=== PATIENT | female | born 1970 | race Caucasian/White ===

== ENCOUNTER → 2024-01-12 14:06 | Outpatient (REF) | payer BC, SELFPAY | LOC: WDC 14:06 | PROVIDERS: ATTENDING PHYSICIAN Obstetrics & Gynecology Gynecology | DX: Z12.31 Encounter for screening mammogram for malignant neoplasm of breast (principal) | CPT/HCPCS: 77063; 77067 ==

== ENCOUNTER → 2024-03-01 11:23 | Outpatient (REF) | payer BC, SELFPAY | LOC: HWRAD 11:23 | PROVIDERS: ATTENDING PHYSICIAN Obstetrics & Gynecology Gynecology; FAMILY PHYSICIAN Nurse Practitioner Family; REFERRING PHYSICIAN Family Medicine | DX: N83.202 Unspecified ovarian cyst, left side (principal) | CPT/HCPCS: 76830; 76856 ==

== ENCOUNTER → 2024-03-16 11:03 | Outpatient (REF) | payer BC, SELFPAY | LOC: WDC 11:03 | PROVIDERS: ATTENDING PHYSICIAN Obstetrics & Gynecology Gynecology; FAMILY PHYSICIAN Family Medicine | DX: R92.2 Inconclusive mammogram (principal) | CPT/HCPCS: 76641 ==

== ENCOUNTER 2024-04-02 06:14 | Day surgery (SDC) | payer BC, SELFPAY ==
[2024-04-02] VITALS (9 sets, daily range): BP systolic 104–119; BP diastolic 48–70; BMI 23.0
[2024-04-02 07:14] LABS: HCG, Urine Qualitative Screen Negative
[2024-04-02] MEDS: ZOFRAN 4 MG IV (09:38)
== END 2024-04-02 10:35 | disposition home or self-care (01) ==
LOC: SDS 06:14
PROVIDERS: ATTENDING PHYSICIAN Obstetrics & Gynecology Gynecology
DX: N84.0 Polyp of corpus uteri (principal); N93.9 Abnormal uterine and vaginal bleeding, unspecified
CPT/HCPCS: 58558; 88305; 81025; 93005

== ENCOUNTER 2024-04-05 20:30 | Emergency (ER) | payer BC, SELFPAY ==
[2024-04-05 20:36] VITALS: BP 121/55
--- NOTE | 2024-04-05 20:38 | ED.GENMED ---
ED Provider Triage
-
Patient seen by provider in Triage?: Seen in Triage
Attestation: A medical screening examination has been initiated by a qualified medical provider. Based on the assessment performed at this time, it has been determined that an emergent medical condition may exist and the patient has been informed
that further medical evaluation and possible additional diagnostic testing may be needed.
HPI: 53-year-old female who had a D&C on Friday by Dr. Guerrero presents now with intermittent palpitations that started 4:00 today. Feels a 'heaviness' upper chest but denies shortness of breath.
Travelled by plane two weeks ago 03/25 and 03/28. Had left thigh pain a few days ago.
GENERAL: Alert , in no apparent distress
EYE: No visual abnormalities.
ENT: No visible abnormalities.
LUNGS: No acute respiratory distress
CARDIAC: RRR
NEUROLOGICAL: Alert and oriented
SKIN: Skin intact. No visible changes.
MUSCULOSKELETAL: Moving extremities normally
PSYCH: Normal and appropriate interaction.
This is a medical evaluation conducted in person to initiate diagnostic evaluation and provide initial therapeutics. Please see further documentation by the treating clinician.
History of Present Illness
General
Chief Complaint: Heart Rate Problem
Source: patient
Exam Limitations: none
Nursing documentation reviewed up to this point in time: agreed with
History of Present Illness
History of Present Illness:
53-year-old female who had a D&C on Friday by Dr. Guerrero presents now with intermittent palpitations that started 4:00 today. Feels a 'heaviness' upper chest but denies shortness of breath.
Travelled by plane two weeks ago 03/25 and 03/28. Had left thigh pain a few days ago.
Past History
Past History
ED Past Medical History: GERD, Psychiatric (anxiety) and Other (trigeminal neuralgia)
Social History
Tobacco: Non-smoker
Alcohol: Occasional
Personal:
Living: with family
Employment: Employed
Review of Systems
Review of Systems
Allergies reviewed?: Yes
All Other Systems: ROS reviewed and negative except as documented in HPI and ROS
Constitutional: Denies fever
Respiratory: Denies trouble breathing
Cardiac: Reports chest pain (chest pressure earlier today) and palpitations
ABD/GI: Denies abdominal pain or nausea
Musculoskeletal: Reports other
Skin: Reports no symptoms
Neurological: Reports no symptoms
Phy Exam
Physical Exam
Physical Exam:
GENERAL: No acute distress. A&Ox3.
CONSTITUTIONAL: Afebrile.
EYES: clear, conjunctivae normal
ENMT: moist mucus membranes, Pharynx nl
RESPIRATORY: Regular respirations, nonlabored, lungs clear.
CARDIOVASCULAR: Regular rate and rhythm, no murmurs, no rubs.
GI: Soft, nontender, normal BS
MUSCULOSKELETAL: Moves with ease. Well perfused.
SKIN: Warm, dry, pink
PSYCH: Normal mood and affect. Well kept, interactive and appropriate
NEUROLOGIC: Awake, alert and oriented. No focal neurological deficits
Course
Orders/Labs/Results
Orders:
Orders
04/05/24 20:31
Electrocardiogram (*1) Urgent
Reason for Study: Tachycardia
EKG- Treatment ONCE
04/05/24 20:46
Complete Blood Count/With Diff Urgent
Comprehensive Metabolic Panel Urgent
D-Dimer Urgent
Troponin I Urgent
Abnormal Lab Results
04/05/24
20:46
RBC 3.14 L 10^6/uL
(4.20-5.40)
Hgb 9.0 L g/dL
(12.0-16.0)
Hct 26.5 L %
(37.0-47.0)
Lymphocytes % 18.9 L %
(20.5-51.1)
04/05/24 20:46
04/05/24 20:46
Vital Signs
Initial and Last Documented VS:
Initial Vital Signs
Temp Pulse Resp BP Pulse Ox
97.7 F 78 20 121/55 100
04/05/24 20:36 04/05/24 20:36 04/05/24 20:36 04/05/24 20:36 04/05/24 20:36
Last Documented Vital Signs
Temp Pulse Resp BP Pulse Ox
97.7 F 78 20 121/55 100
04/05/24 20:36 04/05/24 20:36 04/05/24 20:36 04/05/24 20:36 04/05/24 20:36
MDM/Problems Addressed
Differential Diagnosis Includes:
anxiety, palpitatiosn, PE
MDM/Problems Addressed:
53-year-old female w h/o anemia, trigeminal neuralgia, GERD,anxiety who had a D&C on Friday by Dr. Guerrero presents now with intermittent palpitations that started 4:00 today. Feels a 'heaviness' upper chest but denies shortness of breath.
Travelled by plane two weeks ago 03/25 and 03/28. Had left thigh pain a few days ago.
EKG: NSR
Labs pending.
CBC w Hgb 9.0 (hx anemia)
D dimer normal
CMP WNL
Troponin WNL
*Critical Care Note
Total Time (30-74mins, 75-104mins- exclusive of procedures): Not Applicable
ED Attending Note
-
Portions of this chart may have been created with voice recognition software.� Occasional wrong word or��sound alike� substitutions may have occurred due to the inherent limitations of voice recognition software.
Discharge Plan
Departure
Patient Disposition: Left Without Treatment
Prescriptions:
No Action
ferrous sulfate [Iron (ferrous sulfate)] 325 mg (65 mg iron) Tablet
325 mg PO DAILY
nortriptyline 10 mg Capsule
20 mg PO BID
gabapentin 100 mg Capsule
200 mg PO TID
albuterol sulfate [ProAir HFA] 90 mcg/actuation Hfa Aerosol Inhaler
2 puff INHALATION Q6H PRN (Reason: asthma)
escitalopram oxalate [Lexapro] 5 mg Tablet
5 mg PO DAILY
budesonide-formoterol [Symbicort] 80-4.5 mcg/actuation Hfa Aerosol Inhaler
2 puff INHALATION DAILY
Referrals:
PRIVATE,PHYSICIAN [Emergency Provider] -
Interventions
Interventions:
*Risk Screen - Suicide Last Done: 04/05/24 20:41
*General Assessment Last Done: 04/05/24 20:36
*Neglect/Abuse Screening Last Done: 04/05/24 20:36
*Nursing Disposition Last Done: 04/06/24 00:13
Discharge Date and Time
Discharge Date/Time: 04/06/24 00:14
Print Language: RWANDAN
[2024-04-05 20:54] LABS: % Basophils 0.6 % (0-2); % Eosinophils 3.6 % (0-6); % Immature Granulocytes 0.3 % (0-0.5); % Lymphocytes 18.9 % (20.5-51.1); % Monocytes 7.7 % (1.7-9.3); % Neutrophils 68.9 % (42.2-75.2); Absolute Eosinophils 0.2 10^3/uL (0-0.7); Absolute Lymphocytes 1.3 10^3/uL (1.2-3.4); Absolute Monocytes 0.5 10^3/uL (0.1-0.6); Absolute Neutrophils 4.7 10^3/uL (1.4-6.5); Hematocrit 26.5 % (37.0-47.0); Mean Corpuscular Hgb 28.7 pg (27.0-31.0); Mean Corpuscular Volume 84.4 fL (81.0-99.0); Mean Platelet Volume 10.4 fL (7.4-10.4); Nucleated Red Blood Cells % 0 %; Platelet Count 211 10^3/uL (130-400); Red Blood Cell Count 3.14 10^6/uL (4.20-5.40); Red Cell Dist. Width 12.7 % (11.5-14.5); White Blood Cell Count 6.8 10^3/uL (4.8-10.8)
[2024-04-05 21:06] LABS: ALT (SGPT) 20 U/L (0-35); AST (SGOT) 28 U/L (14-36); Albumin 4.1 g/dl (3.5-5.0); Alkaline Phosphatase 57 U/L (38-126); Blood Urea Nitrogen 16 mg/dl (7-17); Calcium 8.8 mg/dl (8.4-10.2); Carbon Dioxide 27 mmol/L (22-30); Chloride 102 mmol/L (98-107); D-Dimer 0.48 ug/mlFEU (0.00-0.50); Glucose 89 mg/dl (70-99); Potassium 4.5 mmol/L (3.5-5.1); Sodium 139 mmol/L (135-145); Total Bilirubin 0.3 mg/dl (0.2-1.3); Total Protein 6.6 g/dl (6.3-8.2); eGFR > 60.00
[2024-04-05 21:18] LABS: Troponin I < 0.012 ng/ml
== END 2024-04-06 00:14 ==
LOC: EMR 20:30
PROVIDERS: Registered Nurse
DX: R00.2 Palpitations (principal); R07.89 Other chest pain; M79.652 Pain in left thigh; Z53.29 Procedure and treatment not carried out because of patient's decision for other reasons; K21.9 Gastro-esophageal reflux disease without esophagitis; F41.9 Anxiety disorder, unspecified; G50.0 Trigeminal neuralgia; Z98.890 Other specified postprocedural states
CPT/HCPCS: 99281; 80053; 84484; 85025; 85379; 93005

== ENCOUNTER → 2025-01-12 13:22 | Outpatient (REF) | payer BC, SELFPAY | LOC: WDC 13:22 | PROVIDERS: ATTENDING PHYSICIAN Obstetrics & Gynecology Gynecology; FAMILY PHYSICIAN Nurse Practitioner Family | DX: Z12.31 Encounter for screening mammogram for malignant neoplasm of breast (principal) | CPT/HCPCS: 77063; 77067 ==

== ENCOUNTER → 2025-02-14 08:23 | Outpatient (REF) | payer BC, SELFPAY | LOC: HWRAD 08:23 | PROVIDERS: ATTENDING PHYSICIAN Obstetrics & Gynecology Gynecology; FAMILY PHYSICIAN Nurse Practitioner Family | DX: N83.202 Unspecified ovarian cyst, left side (principal) | CPT/HCPCS: 76830; 76856 ==